=== PATIENT | female | born 1995 | race Hispanic/Latino ===

== ENCOUNTER 2017-05-07 12:46 | Emergency (ER) | payer MEDICAID, OTHER ==
[2017-05-07 13:54] LABS: APPEARANCE,URINE Clear (CLEAR); BILIRUBIN,URINE Negative (NEGATIVE); COLOR,URINE Yellow (YELLOW); GLUCOSE, URINE (UA) Negative (NEGATIVE); KETONES,URINE Negative (NEGATIVE); LEUKOCYTE ESTERASE ,URINE Negative (NEGATIVE); NITRATE,URINE Negative (NEGATIVE); OCCULT BLOOD,URINE Large (NEGATIVE); PH,URINE 6.5 (5.0-8.0); PROTEIN,URINE Negative (NEGATIVE); UROBILINOGEN,URINE 0.2 mg/dL (0.2-1.0)
[2017-05-07 14:07] LABS: BACTERIA,URINE Rare /HPF (None Seen); SQUAMOUS EPITHELIAL CELL,UR Rare /LPF (0-2); WBC,URINE 0-1 /HPF (0-1)
== END 2017-05-07 14:07 | disposition left against medical advice (07) ==
LOC: EDH 12:46
DX: R10.9 Unspecified abdominal pain (principal); Z53.21 Procedure and treatment not carried out due to patient leaving prior to being seen by health care provider
CPT/HCPCS: 81001; 81025

== ENCOUNTER 2017-05-16 20:55 | Emergency (ER) | payer MEDICAID, OTHER ==
[2017-05-16 22:14] LABS: APPEARANCE,URINE SL CLOUDY (CLEAR); BILIRUBIN,URINE NEGATIVE (NEGATIVE); COLOR,URINE YELLOW (YELLOW); GLUCOSE, URINE (UA) NEGATIVE (NEGATIVE); KETONES,URINE NEGATIVE (NEGATIVE); LEUKOCYTE ESTERASE ,URINE MODERATE (NEGATIVE); NITRATE,URINE NEGATIVE (NEGATIVE); OCCULT BLOOD,URINE TRACE-INTACT (NEGATIVE); PH,URINE 6.5 (5.0-8.0); PROTEIN,URINE NEGATIVE (NEGATIVE); UROBILINOGEN,URINE 0.2 mg/dL (0.2-1.0)
[2017-05-16 22:25] LABS: BACTERIA,URINE Few /HPF (None Seen); MUCUS,URINE Rare LPF (None Seen); SQUAMOUS EPITHELIAL CELL,UR Moderate /HPF (0-2)
[2017-05-16 22:54] LABS: HCG,QUAL RESULT NEGATIVE (NEGATIVE)
[2017-05-16] MEDS ORDERED: LIDOCAINE HCL-MPF 1% 2ML VIAL ONE (23:07)
[2017-05-16] MEDS ORDERED: CEFTRIAXONE SODIUM 500 MG VIAL ONE (23:07)
[2017-05-16] MEDS ORDERED: AZITHROMYCIN 250 MG TABLET PO ONE ×2 (23:07→23:08)
== END 2017-05-16 23:45 | disposition home or self-care (01) ==
LOC: EDH 20:55
DX: N39.0 Urinary tract infection, site not specified (principal); Z72.0 Tobacco use
CPT/HCPCS: 81001; 81025; 87486; 87797; 96372; 99284; J0696; J3490

== ENCOUNTER 2017-06-10 17:23 | Emergency (ER) | payer MEDICAID, OTHER | END 2017-06-10 18:32 | disposition home or self-care (01) | LOC: EDH 17:23 | DX: T63.481A Toxic effect of venom of other arthropod, accidental (unintentional), initial encounter (principal); Y92.098 Other place in other non-institutional residence as the place of occurrence of the external cause | CPT/HCPCS: 99281 ==

== ENCOUNTER 2017-07-11 15:27 | Emergency (ER) | payer MEDICAID ==
[2017-07-11] MEDS ORDERED: ACETAMINOPHEN 325 MG TAB ONE (15:42)
[2017-07-11] MEDS ORDERED: CYCLOBENZAPRINE HCL 10 MG TABLET ONE (15:42)
[2017-07-11 16:14] LABS: APPEARANCE,URINE SL CLOUDY (CLEAR); BILIRUBIN,URINE NEGATIVE (NEGATIVE); COLOR,URINE YELLOW (YELLOW); GLUCOSE, URINE (UA) NEGATIVE (NEGATIVE); KETONES,URINE 15 mg/dL (NEGATIVE); LEUKOCYTE ESTERASE ,URINE NEGATIVE (NEGATIVE); NITRATE,URINE NEGATIVE (NEGATIVE); OCCULT BLOOD,URINE NEGATIVE (NEGATIVE); PROTEIN,URINE NEGATIVE (NEGATIVE); UROBILINOGEN,URINE 0.2 mg/dL (0.2-1.0)
[2017-07-11 16:27] LABS: BACTERIA,URINE Few /HPF (None Seen); RBC,URINE 0-1 /HPF (0-1); SQUAMOUS EPITHELIAL CELL,UR 30-50 /HPF (0-2); WBC,URINE 0-1 /HPF (0-1)
== END 2017-07-11 18:02 | disposition home or self-care (01) ==
LOC: EDH 15:27
DX: M54.5 Low back pain (principal); Z79.899 Other long term (current) drug therapy; Z98.890 Other specified postprocedural states
CPT/HCPCS: 81001

== ENCOUNTER 2017-12-12 19:28 | Emergency (ER) | payer MEDICAID ==
[2017-12-12] MEDS ORDERED: ONDANSETRON HCL 4 MG/2 ML VIAL ONE (20:13)
[2017-12-12 20:20] LABS: BASOPHILS % (AUTO) 0.3 % (0.0-5.0); EOSINOPHILS % (AUTO) 1.5 % (0.0-8.0); HEMATOCRIT 38.3 % (36-48); LYMPHOCYTES % (AUTO) 14.4 % (21.0-51.0); MEAN CORPUSCULAR HEMOGLOBIN 31.5 pg (27.0-33.0); MEAN CORPUSCULAR HGB CONC 34.6 g/dL (32.0-36.0); MEAN CORPUSCULAR VOLUME 90.9 fL (80-100); MONOCYTES % (AUTO) 9.1 % (3.0-13.0); NEUTROPHILS % (AUTO) 74.7 % (40.0-77.0); NUCLEATED RED BLOOD CELLS 0.1 % (0.0-0.19); PLATELET COUNT (AUTO) 222 K/uL (130-400); RED BLOOD CELL COUNT(AUTO) 4.21 MIL/uL (4.00-5.50); RED CELL DISTRIBUTION WIDTH 13.1 % (11.0-15.5); WHITE BLOOD COUNT (AUTO) 5.2 K/uL (4.8-10.8)
[2017-12-12 20:57] LABS: ALBUMIN 2.6 g/dL (3.5-5.0); BILIRUBIN,TOTAL 0.4 mg/dL (0.2-1.0); CREATININE 0.6 mg/dL (0.5-1.5); TOTAL PROTEIN, SERUM 6.8 g/dL (6.0-8.3)
[2017-12-12] MEDS ORDERED: POTASSIUM BICARB/CIT AC 25 MEQ TABLET.EFF ONE (21:04)
== END 2017-12-12 22:18 | disposition home or self-care (01) ==
LOC: EDH 19:28
DX: O21.2 Late vomiting of pregnancy (principal); R19.7 Diarrhea, unspecified; E87.6 Hypokalemia; Z3A.31 31 weeks gestation of pregnancy
CPT/HCPCS: 36415; 80053; 83690; 85025; 87804 ×2; 96374; 99284; J2405

== ENCOUNTER 2018-09-26 15:33 | Emergency (ER) | payer MEDICAID, OTHER ==
[2018-09-26 16:02] LABS: APPEARANCE,URINE Cloudy (CLEAR); BILIRUBIN,URINE Negative (NEGATIVE); COLOR,URINE Yellow (YELLOW); GLUCOSE, URINE (UA) Negative (NEGATIVE); KETONES,URINE Negative (NEGATIVE); LEUKOCYTE ESTERASE ,URINE Moderate (NEGATIVE); NITRATE,URINE Negative (NEGATIVE); OCCULT BLOOD,URINE Negative (NEGATIVE); PH,URINE 5.5 (5.0-8.0); PROTEIN,URINE Trace mg/dL (NEGATIVE)
[2018-09-26 16:08] LABS: HCG,QUAL RESULT NEGATIVE (NEGATIVE)
[2018-09-26 16:11] LABS: BACTERIA,URINE Few /HPF (None Seen); MUCUS,URINE Few LPF (None Seen); SQUAMOUS EPITHELIAL CELL,UR Moderate /HPF (0-2)
[2018-09-26] MEDS ORDERED: SIMETHICONE 80 MG TAB.CHEW ONE (16:20)
[2018-09-26] MEDS ORDERED: DICYCLOMINE HCL 10 MG/ML 2ML AMP IM ONE (16:20)
[2018-09-26] MEDS ORDERED: ONDANSETRON ODT 4 MG TAB ONE (16:21)
[2018-09-26 16:46] LABS: BASOPHILS % (AUTO) 0.3 % (0.0-5.0); EOSINOPHILS % (AUTO) 2.9 % (0.0-8.0); HEMATOCRIT 41.5 % (36-48); LYMPHOCYTES % (AUTO) 7.6 % (21.0-51.0); MEAN CORPUSCULAR HEMOGLOBIN 32.1 pg (27.0-33.0); MEAN CORPUSCULAR HGB CONC 34.8 g/dL (32.0-36.0); MEAN CORPUSCULAR VOLUME 92.2 fL (80-100); MONOCYTES % (AUTO) 7.1 % (3.0-13.0); NEUTROPHILS % (AUTO) 82.1 % (40.0-77.0); NUCLEATED RED BLOOD CELLS 0.1 % (0.0-0.19); PLATELET COUNT (AUTO) 188 K/uL (130-400); RED BLOOD CELL COUNT(AUTO) 4.51 MIL/uL (4.00-5.50); RED CELL DISTRIBUTION WIDTH 13.3 % (11.0-15.5); WHITE BLOOD COUNT (AUTO) 7.1 K/uL (4.8-10.8)
[2018-09-26 17:06] LABS: CREATININE 0.7 mg/dL (0.5-1.5); POTASSIUM 3.4 mmol/L (3.5-5.1)
[2018-09-26 17:11] LABS: ALBUMIN 3.7 g/dL (3.5-5.0); BILIRUBIN,TOTAL 1.1 mg/dL (0.2-1.0); TOTAL PROTEIN, SERUM 7.8 g/dL (6.0-8.3)
== END 2018-09-26 17:39 | disposition home or self-care (01) ==
LOC: EDH 15:33
DX: R10.84 Generalized abdominal pain (principal); R19.7 Diarrhea, unspecified; R11.10 Vomiting, unspecified; R79.89 Other specified abnormal findings of blood chemistry
CPT/HCPCS: 36415; 80053; 81001; 81025; 83690; 85025; 96372; 99284; J0500

== ENCOUNTER 2018-09-26 23:32 | Emergency (ER) | payer OTHER ==
[2018-09-27 00:07] LABS: APPEARANCE,URINE Cloudy (CLEAR); BILIRUBIN,URINE Negative (NEGATIVE); COLOR,URINE Yellow (YELLOW); GLUCOSE, URINE (UA) Negative (NEGATIVE); KETONES,URINE Negative (NEGATIVE); LEUKOCYTE ESTERASE ,URINE Moderate (NEGATIVE); NITRATE,URINE Negative (NEGATIVE); OCCULT BLOOD,URINE Negative (NEGATIVE); PH,URINE 5.5 (5.0-8.0); PROTEIN,URINE Negative (NEGATIVE)
[2018-09-27 00:13] LABS: HCG,QUAL RESULT NEGATIVE (NEGATIVE)
[2018-09-27 00:16] LABS: BACTERIA,URINE Rare /HPF (None Seen); MUCUS,URINE Few LPF (None Seen); RBC,URINE None Seen /HPF (0-1); SQUAMOUS EPITHELIAL CELL,UR Many /HPF (0-2)
[2018-09-27] MEDS ORDERED: SODIUM CHLORIDE 0.9% 1000ML 1,000 ML IV ONE ×2 (00:36→02:24)
[2018-09-27] MEDS ORDERED: ACETAMINOPHEN EXTRA STRENGTH 500 MG TABLET ONE (00:36)
[2018-09-27 00:40] LABS: BASOPHILS % (AUTO) 0.6 % (0.0-5.0); EOSINOPHILS % (AUTO) 1.4 % (0.0-8.0); HEMATOCRIT 40.4 % (36-48); LYMPHOCYTES % (AUTO) 9.9 % (21.0-51.0); MEAN CORPUSCULAR HEMOGLOBIN 31.9 pg (27.0-33.0); MONOCYTES % (AUTO) 7.1 % (3.0-13.0); PLATELET COUNT (AUTO) 189 K/uL (130-400); RED BLOOD CELL COUNT(AUTO) 4.44 MIL/uL (4.00-5.50); RED CELL DISTRIBUTION WIDTH 13.4 % (11.0-15.5)
[2018-09-27 00:50] LABS: CREATININE 0.8 mg/dL (0.5-1.5); POTASSIUM 3.4 mmol/L (3.5-5.1)
[2018-09-27 00:54] LABS: ALBUMIN 3.8 g/dL (3.5-5.0); BILIRUBIN,TOTAL 0.4 mg/dL (0.2-1.0); TOTAL PROTEIN, SERUM 7.8 g/dL (6.0-8.3)
[2018-09-27] MEDS ORDERED: AMOXICILLIN 500 MG CAPSULE PO ONE (02:23)
== END 2018-09-27 03:33 | disposition home or self-care (01) ==
LOC: EDH 23:32
DX: A09 Infectious gastroenteritis and colitis, unspecified (principal); N39.0 Urinary tract infection, site not specified; K75.2 Nonspecific reactive hepatitis
CPT/HCPCS: 36415; 76705; 80053; 80074; 81025; 82150; 83690; 85025; 87088; 87804 ×2; 96360; 96361; 99285; J7030 ×2

== ENCOUNTER 2024-01-23 08:33 | Emergency (ER) | payer SELFPAY ==
[~2024-01-23] VITALS: Ht 154.9 cm; Wt 72.6 kg
--- NOTE | 2024-01-23 08:40 | NUR ---
PT JUST NOW PLACED IN MY ED BED 19
[2024-01-23] MEDS ORDERED: AMOX1TAB16 PO (09:04)
[2024-01-23] MEDS ORDERED: KETO10 PO (09:04)
--- NOTE | 2024-01-23 09:12 | ERN ---
ED Note History of Present Illness Stated Complaint: TOOTH PAIN Chief Complaint: Tooth Ache/Pain Dictation: Patient is a 28-year-old female came to the ED with a chief complaint of severe toothache since 3 days. Patient started having this tooth ache at left upper premolars since nearly a month and had become severe is a since last week, patient also started having throbbing pain radiating to her left side of head, behind the left eye, left ear. The pain is constant and aggravates on moving jaw or chewing. She informed that she broke her left upper premolar early this year and had no issue until 1 month ago. Patient says Tylenol did not relieve her pain. Allergies: Coded Allergies: No Known Allergies (Unverified Allergy, Unknown, 09/26/18) Past Medical History Past Medical History: No Pertinent History Surgical History: None Review of System Dictation Constitutional-no chills, weight loss/gain, fever Eyes-no injury, redness and discharge. Pain behind left eye ENT-no injury, pain, swelling. Left upper premolars pain Cardiovascular no chest pain, palpitations, edema Respiratory no shortness of breath, cough, wheezing Abdomen/GI-no abdominal pain, diarrhea, constipation, vomiting, nausea Back no injury and pain Genitourinary no injury, bleeding and discharge Musculoskeletal/extremities no injury, deformity Skin no rash, discoloration Neuro-no headache, weakness, numbness, tingling, seizures, tremors Psych-no suicidal ideation, homicidal ideation, hallucinations, depression, anxiety, memory loss Initial Vital Sign VS Vital Signs Date Time Temp Pulse Resp B/P (MAP) Pulse Ox O2 Delivery O2 Flow Rate FiO2 01/23/24 08:34 98.4 64 18 113/75 98 Room Air Physical Exam Dictation General-patient is awake alert and oriented Head/neck-normocephalic, atraumatic Eyes-PERRL, EOMI, vision at baseline Neck-trachea midline, supple, no nuchal rigidity Cardiovascular-RRR, normal S1/S2, no MRG is, no JVD Respiratory-no distress, wheezing, rales, rhonchi Abdomen-no tenderness, guarding, soft, nondistended Skin warm, dry, normal turgor, no rash Musculoskeletal/extremities pulses equal, no cyanosis Neuro-COA X 4, GCS 15, strength 5/5, CN 2-12 intact Psych-normal behavior, mood and affect normal ED Course ED Course Orders Procedure Category Date Status Time Dexamethasone 4 Mg PHA 01/23/24 Transmitted Tab (Decadron 4 Mg Ta 09:00 Amox/Clav 875/125mg PHA 01/23/24 Transmitted Tab (Augmentin 875-1 09:00 Ketorolac PHA 01/23/24 Transmitted Tromethamine 30mg/Ml 09:00 Vital Signs Date Time Temp Pulse Resp B/P (MAP) Pulse Ox O2 Delivery O2 Flow Rate FiO2 01/23/24 08:34 98.4 64 18 113/75 98 Room Air Medical Decision Making MDM INITIAL IMPRESSION Initial history and physical concerning for tooth abscess, cavities Contributing medical problems: History of Broken tooth I have reviewed the triage nursing notes and vital signs. Initial plan: None DATA REVIEW I have reviewed additional NN, repeat VS, and monitoring where indicated. Heart rate, blood pressure, and O2 saturation are acceptable. ED COURSE Interventions: Pain medication and antibiotics Reassessment: Not indicated DISPOSITION Final diagnostic impression: Tooth Cavities I discussed my findings, clinical impression and treatment recommendations with the patient. My final plan for disposition was made based upon -mild risk of complications and potential morbidity of the patient's condition. -Discussion with the patient regarding management options. Patient will be discharged and referred to dentist DX & DISP Disposition: Discharge Departure Impression: Primary Impression: Dental cavities Condition: Stable Scripts Ketorolac Tromethamine (Toradol) 10 Mg Tab 10 MG PO TID, #30 TAB Prov: CRISTINA MONSIVAIS MD 01/23/24 Amoxicillin/Potassium Clav (Amox Tr-K Clv 875-125 mg Tab) 875 Mg-125 Mg Tablet 1 EACH PO DAILYBKFST for 7 Days, #7 TAB Prov: CRISTINA MONSIVAIS MD 01/23/24 Additional Instructions: Come back to the ED. if you have any acute or emergency symptoms [place] teeth twice a day, and floss once a day. Brushing with fluoride toothpaste and flossing may be enough to reverse early decay. Use a toothbrush with soft, rounded-end bristles and a head that is small enough to reach all parts of your teeth and mouth. Replace your toothbrush every 3 or 4 months. You may also use an electric toothbrush that has rotating and oscillating ([id number]) action. Ask your dentist about having fluoride treatments at the dental office. [place] your tongue to help get rid of bacteria. Eat healthy foods that include whole grain foods, vegetables, and fruits. Have your teeth cleaned by a professional. Your dentist will recommend how often to have routine checkups. Many people should see their dentists once or twice a year. Do not smoke or use smokeless tobacco. Tobacco can make tooth decay worse. Follow up with the primary care provider and dentist Referrals: MAYRA MCGUIRE [facility] APPOINTMENT AND FOLLOWUP SELF,REFERRAL (PCP) Time of Disposition: 09:09 I have reviewed I have reviewed the case I have examined patient CRISTINA MONSIVAIS MD Jan 23, 2024 09:12
[2024-01-23] MEDS: AMOX/CLAV 875/125MG TAB PO ONE (09:18)
[2024-01-23] MEDS: ketOROlac 30MG VIAL (30MG/ML) IM ONE (09:18)
[2024-01-23] MEDS: dexaMETHasone 4 MG TAB PO SCH (09:19)
--- NOTE | 2024-01-23 10:04 | NUR ---
DISCHARGE NOTE: PT ESCORTED TO D/C DOOR W/A STEADY AND EVEN GAIT. MED INST PROVIDED. F/U W/PCP FOR OR SEE A DENTIST. BLAND DIET ENCOURAGED. SAFE SEX WHILE ON ANTIBIOTICS. TOOTH CEMENT AND ORAL GEL ENCOURAGED FOR DENTAL ON SITE PAIN AND TEMP CLOSURE OF EXPOSED DENTAL NEVER ENDING. SOFT DIET ENCOURAGED AND TO CHEW ON OPPOSITE SIDE OF DENTAL ANGIE/BROKEN TOOTH. (BROKEN TOOTH HAPPENED GREATER THAN 6 MONTHS AGO)
[2024-01-23 10:06] VITALS: BP 122/78; PULSE 65; RESP 16; TEMP 97.9; O2SAT 100
== END 2024-01-23 10:03 | disposition home or self-care (01) ==
LOC: EDH 08:33
DX: K02.9 Dental caries, unspecified (principal)
CPT/HCPCS: 99283; 96372; J1885; J8540

== ENCOUNTER 2024-03-08 15:41 | Emergency (ER) | payer SELFPAY ==
[~2024-03-08] VITALS: Ht 154.9 cm; Wt 81.6 kg
[~2024-03-08 15:41] MED LIST: AMOX1TAB16 PO; KETO10 PO
[2024-03-08 16:57] VITALS: BP 121/74; PULSE 89; RESP 18; TEMP 98.7; O2SAT 98
[2024-03-08] MEDS ORDERED: AMOX1TAB16 PO (17:08)
--- NOTE | 2024-03-08 17:08 | ERN ---
General Chief Complaint: Tooth Ache/Pain Stated Complaint: TOOTHACHE Time Seen by MD: 16:19 Time Seen by Midlevel: 16:19 Source: patient History of Present Illness Initial Comments Patient is a 28-year-old female with no significant past medical history presenting to the emergency department with pain to the left upper tooth. Patient was seen in our emergency department approximately one month ago for the same issue. She was given antibiotics and pain medication and discharged home. She has been unable to follow up with a dentist. She states she does have an appointment scheduled but is not until another month. She reports severe pain to the area with small amounts of swelling in his concern for an abscess. Denies any fever, chills, nausea, vomiting or any other symptoms at this time. Allergies: Coded Allergies: No Known Allergies (Unverified Allergy, Unknown, 09/26/18) Home Meds Active Scripts Amoxicillin/Potassium Clav (Amox Tr-K Clv 875-125 mg Tab) 875 Mg-125 Mg Tablet, 1 EACH PO BID for 7 Days, #14 TAB 0 Refills Prov:RA MORRIS 03/08/24 Ketorolac Tromethamine (Toradol) 10 Mg Tab, 10 MG PO TID, #30 TAB Prov:CRISTINA MONSIVAIS MD 01/23/24 Amoxicillin/Potassium Clav (Amox Tr-K Clv 875-125 mg Tab) 875 Mg-125 Mg Tablet, 1 EACH PO DAILYBKFST for 7 Days, #7 TAB Prov:CRISTINA MONSIVAIS MD 01/23/24 Past Medical History Past Medical History: Bipolar Past Surgical History: None Female( History) LMP: Mar 05, 2024 ROS Dictation CONSTITUTIONAL: Negative except for HPI HEAD/FACE: Negative except for HPI EENT: Negative except for HPI RESPIRATORY: Negative except for HPI GASTROINTESTINAL/ABDOMINAL: Negative except for HPI GENITOURINARY: Negative except for HPI MUSCULOSKELETAL: Negative except for HPI INTEGUMENTARY: Negative except for HPI NEUROLOGICAL/PSYCH: Negative except for HPI HEMATOLOGIC/LYMPHATIC: Negative except for HPI All Systems Negative, Except as noted above. 13 point review of systems assessed and all negative except for above. Physical Exam Physical Exam Dictation PHYSICAL EXAM: GENERAL: alert,, awake oriented x 3 HEENT: EOMI, Sclera non icteric, moist mucosa, dental caries throughout mouth, poor dentition, there is a left upper dental abscess with gingival swelling NECK: Supple, no JVD, trachea midline LUNGS: Clear breath sounds bilaterally. No wheezes HEART: Regular rate and rhythm. Normal S1 and S2, without murmurs ABD: Abdomen soft, nontender. Bowel sounds present EXT: No clubbing or cyanosis, NEURO: Alert and oriented to person, follows commands MDM MDM: Differential diagnosis: Dental abscess, dental caries, There are no social concerns with this patient. Prescription drug management Prescriptions will include: Augmentin Medical management and examination interpretation discussions were had by me with other qualified healthcare professionals as indicated for the patient's care. ED Course Orders Procedure Category Date Status Time Ketorolac PHA 03/08/24 In Process Tromethamine 30mg/Ml 17:30 Ceftriaxone 1g Vial PHA 03/08/24 In Process (Rocephine 1g Inj) 17:30 Dexamethasone 4 Mg PHA 03/08/24 In Process Tab (Decadron 4 Mg Ta 17:30 Current Medications Medications (Trade) Dose Ordered Sig/Geetha Route PRN Reason Start Time Stop Time Status Last Admin Dose Admin Ceftriaxone Sodium (ROCEphine 1G INJ) 1 gm ONCE ONCE IM 03/08/24 17:30 03/08/24 17:31 Dexamethasone (DeCADron 4 mg TAB) 8 mg ONCE PO 03/08/24 17:30 04/07/24 17:29 Ketorolac Tromethamine (toRADol) 30 mg ONCE ONCE IM 03/08/24 17:30 03/08/24 17:31 Vital Signs Date Time Temp Pulse Resp B/P (MAP) Pulse Ox O2 Delivery O2 Flow Rate FiO2 03/08/24 16:57 98.8 89 18 121/74 98 Room Air* 0 21 03/08/24 15:53 97.9 80 16 118/78 99 Room Air 0 DX & DISP Disposition: Discharge Departure Impression: Primary Impression: Dental abscess Condition: Stable Scripts Amoxicillin/Potassium Clav (Amox Tr-K Clv 875-125 mg Tab) 875 Mg-125 Mg Tablet 1 EACH PO BID for 7 Days, #14 TAB 0 Refills Prov: RA MORRIS 03/08/24 Additional Instructions: Your physical examination is consistent with a dental abscess. You were given antibiotics and pain medication in the emergency department. I have given you a prescription for oral antibiotics outpatient. You will need to follow up with a dentist as discussed. Please keep your dentist appointment as scheduled. Return to the ER if you develop any new or worsening symptoms Referrals: SELF,REFERRAL (PCP) Time of Disposition: 17:07 I have reviewed the case, and I agree with, Diagnosis and Plan I performed the substantive portion of the visit. I have reviewed and personally made and approve the management plan that is documented in the note by myself or the SHAE. I acknowledge for responsibility for the patient's management plan. RA MORRIS Mar 08, 2024 17:08
[2024-03-08] MEDS: ketOROlac 30MG VIAL (30MG/ML) IM ONE (17:37)
[2024-03-08] MEDS: dexaMETHasone 4 MG TAB PO SCH (17:37)
[2024-03-08] MEDS: cefTRIAXone 1G VIAL IM ONE (17:37)
== END 2024-03-08 17:47 | disposition home or self-care (01) ==
LOC: EDH 15:41
DX: K04.7 Periapical abscess without sinus (principal); Z79.1 Long term (current) use of non-steroidal anti-inflammatories (NSAID); Z79.899 Other long term (current) drug therapy
CPT/HCPCS: 99284; 96372 ×2; J1885; J0696; J8540

== ENCOUNTER 2024-04-29 15:48 | Emergency (ER) | payer SELFPAY ==
[~2024-04-29] VITALS: Ht 154.9 cm; Wt 68.0 kg
[2024-04-29 16:11] VITALS: BP 126/77; PULSE 82; RESP 20; TEMP 98.8; O2SAT 99
[2024-04-29] MEDS ORDERED: CLIN-141 PO (16:54)
[2024-04-29] MEDS ORDERED: IBUP-2077 PO (16:54)
--- NOTE | 2024-04-29 16:55 | ERN ---
ED Note History of Present Illness Stated Complaint: JAW PAIN Chief Complaint: Tooth Ache/Pain Time Seen by MD: 15:49 Dictation: PATIENT IS A 28-YEAR-OLD FEMALE HERE WITH DENTAL PAIN TO TOOTH NUMBER 12, SHE HAS HAD FOR SEVERAL WEEKS. IT HAS GOTTEN WORSE OVER THE LAST 2-3 DAYS SHE STATES SHE HAS AN APPOINTMENT WITH HER DENTIST IN [place] ON FRIDAY. NO FEVER NO CHILLS NO NAUSEA VOMITING. Allergies: Coded Allergies: No Known Allergies (Unverified Allergy, Unknown, 09/26/18) Home Meds Active Scripts Ibuprofen (Ibuprofen 800 mg Tab) 800 Mg Tab, 800 MG PO Q8H PRN for fever or pain, #30 TAB 0 Refills Prov:LAURIE MENDEZ ALIGNMENT SPECIALIST 04/29/24 Clindamycin HCl (Clindamycin HCl) 300 Mg Capsule, 1 CAP PO QID for 10 Days, #40 CAP 0 Refills Prov:LAURIE MENDEZ ALIGNMENT SPECIALIST 04/29/24 Amoxicillin/Potassium Clav (Amox Tr-K Clv 875-125 mg Tab) 875 Mg-125 Mg Tablet, 1 EACH PO BID for 7 Days, #14 TAB 0 Refills Prov:RA MORRIS 03/08/24 Ketorolac Tromethamine (Toradol) 10 Mg Tab, 10 MG PO TID, #30 TAB Prov:CRISTINA MONSIVAIS MD 01/23/24 Amoxicillin/Potassium Clav (Amox Tr-K Clv 875-125 mg Tab) 875 Mg-125 Mg Tablet, 1 EACH PO DAILYBKFST for 7 Days, #7 TAB Prov:CRISTINA MONSIVAIS MD 01/23/24 Past Medical History Past Medical History: No Pertinent History Surgical History: None LMP: Apr 27, 2024 : 4 Para: 4 RN Note Reviewed/Agreed w/PFSH: Yes Review of System Dictation CONSTITUTIONAL: NEGATIVE EXCEPT FOR HPI HEAD/FACE: NEGATIVE EXCEPT FOR HPI EENT: NEGATIVE EXCEPT FOR HPI DENTAL CARIES WITH DENTALGIA RESPIRATORY: NEGATIVE EXCEPT FOR HPI GASTROINTESTINAL/ABDOMINAL: NEGATIVE EXCEPT FOR HPI GENITOURINARY: NEGATIVE EXCEPT FOR HPI MUSCULOSKELETAL: NEGATIVE EXCEPT FOR HPI INTEGUMENTARY: NEGATIVE EXCEPT FOR HPI NEUROLOGICAL/PSYCH: NEGATIVE EXCEPT FOR HPI HEMATOLOGIC/LYMPHATIC: NEGATIVE EXCEPT FOR HPI ALL SYSTEMS NEGATIVE, EXCEPT NOTED ABOVE. 13 POINT REVIEW OF SYSTEMS ASSESSED AND ALL NEGATIVE EXCEPT FOR ABOVE. Initial Vital Sign VS Vital Signs Date Time Temp Pulse Resp B/P (MAP) Pulse Ox O2 Delivery O2 Flow Rate FiO2 04/29/24 15:54 98.8 82 20 126/77 99 Room Air 0 04/29/24 16:11 21 Physical Exam Dictation VITAL SIGNS REVIEWED GENERAL APPEARANCE: ALERT, ORIENTED X 3, MODERATE ACUTE DISTRESS, WELL DEVELOPED, NOURISHED. HEAD AND FACE: NON-TRAUMATIC. EYES: PERRL, PINK CONJUNCTIVAS, EYELID NO TRAUMA, ANTERIOR CHAMBER WITH ARCUS SENILIS. EARS: PINNAS INTACT AND NO SIGNS OF TRAUMA OR ERYTHEMA EAR CANALS CLEAR AND NO DISCHARGE TM NO ERYTHEMA NOSE: NO DISCHARGE, NO BLEEDING. OROPHARYNX: DENTAL CARIES INTO THE PULP 12., MILD GINGIVAL INFLAMMATION PHARYNX CLEAR,NO ERYTHEMA, TONSILS NO EXUDATES, NO ABSCESSES NOTED, MUCOUS ME M[place] MOIST NECK: SUPPLE, NON-TENDER, NO THYROMEGALY, NO MASSES, NO JVD, NO BRUITS BREAST:DEFERRED CHEST:NO TENDERNESS, NO CREPITUS, NO PARADOXICAL MOVEMENT, NO RETRACTIONS LUNGS:CLEAR, WELL-VENTILATED, SYMMETRIC, NO RALES, NO WHEEZING, NO RHONCHI, NO STRIDOR, GOOD BREATH SOUNDS BILATERALLY HEART: REGULAR RATE, REGULAR RHYTHM, NO MURMUR, NO GALLOPS VASCULAR: NO PERIPHERAL EDEMA, ABDOMEN: SOFT, POSITIVE BOWEL SOUNDS, NONDISTENDED, NO GUARDING, NONTENDER, NO REBOUND, NO MASSES NO HEPATOMEGALY, NO SPLENOMEGALY, NO BANKS'S SIGN, NO HERNIAS. RECTAL: DEFERRED GENITAL: DEFERRED NEUROLOGICAL: NORMAL SPEECH, MOTOR FUNCTION INTACT, SENSORY FUNCTION INTACT MUSCULOSKELETAL: NECK NONTENDER, FULL RANGE OF MOTION, BACK NONTENDER, FULL RANGE OF MOTION, EXTREMITIES: NONTENDER, FULL RANGE OF MOTION SKIN: COLOR PINK, DRY, NO TURGOR, NO RASH, NO LACERATIONS, NO ABRASIONS, NO CONTUSIONS. LYMPHATIC: DEFERRED Results (Laboratory/Radiology) Labs Reviewed?: Yes ED Course ED Course Medical Decision Making MDM MEDICAL DISCHARGE MAKING BASED ON EMPIRIC TREATMENT FOR DENTALGIA AND DENTAL CARIES PATIENT TOLD TO KEEP HER APPOINTMENT WITH HER DENTIST IN [place] FRIDAY GIVEN TORADOL AND PRESCRIPTION FOR CLINDAMYCIN DX & DISP Disposition: Discharge Departure Impression: Primary Impression: Dental cavities Additional Impression: Dentalgia Condition: Stable Scripts Ibuprofen (Ibuprofen 800 mg Tab) 800 Mg Tab 800 MG PO Q8H PRN for fever or pain, #30 TAB 0 Refills Prov: LAURIE MENDEZ ALIGNMENT SPECIALIST 04/29/24 Clindamycin HCl (Clindamycin HCl) 300 Mg Capsule 1 CAP PO QID for 10 Days, #40 CAP 0 Refills Prov: LAURIE MENDEZ ALIGNMENT SPECIALIST 04/29/24 Additional Instructions: FOLLOW-UP WITH PRIMARY CARE PROVIDER IN 1 TO 2 DAYS. TAKE MEDICATIONS DIRECTED HERE IN THE EMERGENCY ROOM. OKAY TO CONTINUE HOME MEDICATIONS UNLESS OTHERWISE DISCUSSED DURING YOUR VISIT IN THE EMERGENCY ROOM TODAY. RETURN TO YOUR NEAREST EMERGENCY ROOM IF SYMPTOMS WORSEN OR IF THERE IS NO IMPROVEMENT. CALL 911 IF YOU NEED IMMEDIATE ASSISTANCE. TAKE TYLENOL OR MOTRIN [id number] NEEDED AND IF NO CONTRAINDICATIONS ARE PRESENT. INCREASE ORAL HYDRATION. A WOUND CULTURE OR URINE CULTURE WAS ORDERED HERE IN THE EMERGENCY ROOM DEPARTMENT PLEASE FOLLOW-UP WITH PRIMARY CARE PROVIDER AND ADVISE THEM TO GET REPEAT PORTS FROM OUR FACILITY. IF YOU HAD ANY ALISSON WRAP/SPLINTS THAT WERE APPLIED HERE, PLEASE DO NOT REMOVE THEM UNTIL YOU SEE YOUR PRIMARY CARE OR SPECIALTY. TAKE ANTIBIOTICS DIRECTED UNTIL GONE KEEP YOUR APPOINTMENT WITH YOUR DENTIST IN [place] ON FRIDAY. Referrals: NONE (PCP) Time of Disposition: 16:53 I have reviewed the case, and I agree with, Diagnosis and Plan I performed the substantive portion of the visit. I have reviewed and p ersonally made and approve the management plan that is documented in the notes by myself or the SHAE. I acknowledge full responsibility for the patient's management plan. LAURIE MENDEZ NP Apr 29, 2024 16:55 CHIDI CEE MD May 02, 2024 18:39
[2024-04-29] MEDS: ketOROlac 60 MG VIAL (30MG/ML) IM ONE (17:46)
== END 2024-04-29 17:50 | disposition home or self-care (01) ==
LOC: EDH 15:48
DX: K02.9 Dental caries, unspecified (principal); Z79.1 Long term (current) use of non-steroidal anti-inflammatories (NSAID); Z79.899 Other long term (current) drug therapy
CPT/HCPCS: 99283; 96372; J1885